=== PATIENT | male | born 1930 | race Caucasian/White ===

== ENCOUNTER 2016-09-02 18:16 | Emergency (ER) | payer MEDICARE ==
[2016-09-02 18:55] LABS: HEMATOCRIT 24.2 % (42.0-52.0); HEMOGLOBIN 7.2 gm/dl (14.0-18.0); MEAN CELL VOLUME 94.2 fl (81-97); MEAN CORPUSCULAR HGB CONC 29.8 g/dl (32-36); PLATELET COUNT 253 K/uL (130-400); RED BLOOD COUNT 2.57 M/uL (4.40-5.70); RED CELL DISTRIBUTION WIDTH 16.4 % (11.5-14.5); WHITE BLOOD COUNT W/O DIFF 4.8 K/uL (4.2-12.2)
--- NOTE | 2016-09-02 19:02 | Emergency Department Record ---
History of Present Illness - General Chief Complaint: General Stated Complaint: LOW POTASSIUM SENT BY DR Mancia Seen by Provider: 09/02/16 18:32 Source: Patient Mode of Arrival: Wheelchair Limitations: No limitations - History of Present Illness Initial comments: 86 yo male presents to ED for evaluation of low potassium. Patient reports that he was called by his PCP following routine blood draw and found to have a potassium of 2.9. Patient does report mild dizziness over the past several days , denies other symptoms. Patient denies chest pain or difficulty breathing. Patient does however reports history of valve repair, does not take anticoagulation following replacement. Improves with: None Worsens with: None Associated Symptoms: Denies other symptoms - Jaspal Coma Scale Eye Response: (4) Open spontaneously Motor Response: (6) Obeys commands Verbal Response: (5) Oriented Jaspal Total: 15 - Related Data Home Medications Medication Instructions Recorded Confirmed Last Taken Atorvastatin Calcium [Lipitor] 20 mg PO QHS 09/02/16 09/02/16 Unknown Furosemide [Furosemide] 40 mg PO BID 09/02/16 09/02/16 Unknown Potassium Chloride 20 meq PO BID 09/02/16 09/02/16 Unknown Propranolol HCl [Inderal] 10 mg PO DAILY 09/02/16 09/02/16 Unknown Ropinirole HCl [Requip] 3 mg PO QHS 09/02/16 09/02/16 Unknown Allergies Allergy/AdvReac Type Severity Reaction Status Date / Time No Known Drug Allergies Allergy Verified 09/02/16 18:34 Travel Screening - Travel/Exposure Within Last 30 Days Have you traveled within the last 30 days?: No Review of Systems Constitutional: Denies: Chills, Fever, Malaise, Night sweats Eyes: Denies: Eye discharge, Eye pain ENT: Denies: Congestion, Ear pain, Epistaxis Respiratory: Denies: Cough, Dyspnea Cardiovascular: Denies: Chest pain, Dyspnea on exertion Endocrine: Denies: Fatigue, Heat or cold intolerance Gastrointestinal: Denies: Abdominal pain, Nausea, Vomiting Genitourinary: Denies: Incontinence, Retention Musculoskeletal: Denies: Arthralgia, Back pain, Gout, Joint swelling Skin: Denies: Bruising, Change in color Neurological: Reports: Vertigo. Denies: Abnormal gait, Confusion, Headache, Tingling Psychiatric: Denies: Anxiety Hematological/Lymphatic: Denies: Anemia, Blood Clots Past Medical History - SOCIAL HISTORY Smoking Status: Former smoker Alcohol Use: None Drug Use: None - RESPIRATORY Hx Respiratory Disorders: Yes - CARDIOVASCULAR Hx Cardio Disorders: Yes Hx Abnormal EKG: Yes Hx Cardiac Cath: Yes Hx CHF: Yes - NEURO Hx Neuro Disorders: No - GI Hx GI Disorders: No - Hx Genitourinary Disorders: No - ENDOCRINE Hx Endocrine Disorders: No - MUSCULOSKELETAL Hx Musculoskeletal Disorders: Yes Hx Arthritis: Yes - PSYCH Hx Psych Problems: No - HEMATOLOGY/ONCOLOGY Hx Hematology/Oncology Disorders: Yes Hx Anemia: Yes Hx Blood Transfusions: Yes Hx Blood Transfusion Reaction: No Family Medical History Any Significant Family History?: No Physical Exam - General General Appearance: Alert, Oriented x3, Cooperative, No acute distress Limitations: No limitations - Head Head exam: Atraumatic, Normocephalic, Normal inspection Head exam detail: negative: Abrasion, Contusion, Crespo's sign, General tenderness, Hematoma, Laceration - Eye Eye exam: Normal appearance. negative: Conjunctival injection, Periorbital swelling, Periorbital tenderness, Scleral icterus - ENT Ear exam: negative: Auricular hematoma, Auricular trauma Nasal Exam: negative: Active bleeding, Discharge, Dried blood, Sinus tenderness Mouth exam: negative: Drooling, Laceration, Tongue elevation - Neck Neck exam: Normal inspection, Full ROM. negative: Tenderness - Respiratory Respiratory exam: Normal lung sounds bilaterally. negative: Rhonchi, Stridor, Wheezes - Cardiovascular Cardiovascular Exam: Regular rate, Normal rhythm, Normal heart sounds, Systolic murmur (IV/) - GI/Abdominal GI/Abdominal exam: Soft. negative: Rebound, Rigid, Tenderness - Rectal Rectal exam: Deferred - exam: Deferred - Extremities Extremities exam: Normal inspection. negative: Calf tenderness, Pedal edema, Tenderness - Back Back exam: Denies: CVA tenderness (R), CVA tenderness (L) - Neurological Neurological exam: Alert, Normal gait, Oriented X3 - Psychiatric Psychiatric exam: Normal affect, Normal mood - Skin Skin exam: Normal color. negative: Abrasion Type of lesion: negative: abrasion Course Vital Signs 09/02/16 18:24 Temperature 98.1 F Pulse Rate 59 L Respiratory 20 Rate Blood Pressure 108/45 - Reevaluation(s) Reevaluation #1: 09/02/16 19:14 EKG: Atrial Fibrillation 55 LAD, IVCD Nonspecific ST-T wave changes Reevaluation #2: 09/02/16 19:34 Labs reviewed, Hgb 7.2/HCT 24.2 (chronic per patient), BUN 30/Creatinine 1.2, and Potassium is confirmed at 2.9. 40 meq potassium ordered both intravenously along with Magnesium IV. Awaiting return call from Dr. Damon/Tami to determine if the patient's atrial fibrillation is chronic or not. Patient is scheduled to see Dr. Watkins ([facility]/ onc) for his chronic anemia symptoms. 09/02/16 20:45 Reevaluation #3: 09/02/16 19:58 2nd page placed to on-call commercial credit specialist. 09/02/16 20:30 3rd page placed to on-call cardiology (Dr. Garrett per [facility]). Reevaluation #4: 09/02/16 20:42 records reviewed from [facility], [facility] from 08/29/16 indicates chronic atrial fibrillation, previous EKG 08/04/15 also demonstrates atrial fibrillation. 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 Potassium is infusing, will complete after 4-hour infusion with a plan for discharge home when completed to continue oral potassium at home and a recheck potassium level Monday with results to Sofya Rodriguez. Reevaluation #5: 09/02/16 23:34 Potassium infusion over 4 hours has completed, patient has been sleeping/ resting comfortably. Patient appears stable for discharge with instructions for repeat BMP Monday (Rx given) and instructions to continue his current potassium regimen daily. Patient appears stable for discharge at this time. Medical Decision Making - Lab Data Result diagrams: 09/02/16 18:40 09/02/16 18:40 Lab Results 09/02/16 Range/Units 18:40 WBC 4.8 (4.2-12.2) K/uL RBC 2.57 L (4.40-5.70) M/uL Hgb 7.2 L (14.0-18.0) gm/dl Hct 24.2 L (42.0-52.0) % MCV 94.2 (81-97) fl MCH 28.0 (27-33) pg MCHC 29.8 L (32-36) g/dl RDW 16.4 H (11.5-14.5) % Plt Count 253 (130-400) K/uL MPV 9.0 (7.4-10.4) fl Eosinophils % Not Reportable Basophils % Not Reportable Disposition Disposition: Discharge Clinical Impression: Hypokalemia, Chronic atrial fibrillation, Chronic anemia Disposition: Home, Self-Care Condition: (2) Stable Instructions: Hypokalemia (ED) Additional Instructions: Return to ED if your symptoms worsen or if you have any concerns. Repeat Potassium level to be drawn in 36 hours. Follow-up with Dr. Cowart Next Monday/Monday. Forms: Patient Portal Access Time of Disposition: 23:35 Quality - Quality Measures Quality Measures: N/A - Blood Pressure Screening Blood Pressure Classification: Normal BP Reading Systolic Measurement: 108 Diastolic Measurement: 45 Screening for High Blood Pressure: < Normal BP, F/U Not Required > [G8783] Normal BP Follow-up Interventions: No follow-up required
[2016-09-02 19:05] LABS: ALBUMIN 3.1 gm/dL (3.5-5.0); ALKALINE PHOSPHATASE 122 U/L (38-126); ALT/SGPT 56 U/L (21-72); AST/SGOT 50 U/L (17-59); BLOOD UREA NITROGEN 30 mg/dL (9-20); CREATININE 1.2 mg/dL (0.66-1.25); EST GLOMERULAR FILTRATION RATE > 60 ml/min; GLUCOSE,RANDOM 106 mg/dL (70-110); TOTAL PROTEIN 6.1 gm/dL (6.3-8.2)
[2016-09-02] MEDS ORDERED: MAGNESIUM SULFATE 16 MEQ in 0.9 % SODIUM CHLORIDE 100ML 100 ML IV ONE (19:30)
[2016-09-02] MEDS ORDERED: POTASSIUM CHLORIDE 40 MEQ/15ML 40 MEQ/15 ML ML PO ONE (19:30)
[2016-09-02] MEDS ORDERED: SOD CHLOR 0.9% WITH KCL 40MEQ 40 MEQ/1,000 ML IV.SOLN IV ONE (19:31)
[2016-09-02 19:41] LABS: TROPONIN I 0.02 ng/mL (0.00-0.034)
== END 2016-09-02 23:57 | disposition home or self-care (01) ==
LOC: ER 18:16
DX: E87.6 Hypokalemia (principal); I48.2 Chronic atrial fibrillation; R42 Dizziness and giddiness; D64.9 Anemia, unspecified; I50.9 Heart failure, unspecified; Z87.891 Personal history of nicotine dependence; Z95.2 Presence of prosthetic heart valve
CPT/HCPCS: 80053; 82550; 84484; 85027; 93005; 93010; 96365; 96366; 96368; 99284